=== PATIENT | male | born 1945 | race Caucasian/White ===

== ENCOUNTER → 2022-12-02 | Outpatient (CLI) | payer MEDICARE, SELFPAY ==
[2022-11-28 10:30] LABS: Absolute Lymphocyte Count 1.77 X10^3/uL (0.83-4.51); Basophil# 0.09 X10^3/uL; Basophil% 1.6 % (0-1); Eosinophil# 0.17 X10^3/uL; Hematocrit 47.2 % (40-54); Hemoglobin 16.2 g/dL (13.0-16.5); Lymphocyte # 1.77 X10^3/ul (0.83-4.51); Lymphocyte % 30.8 % (19-41); Mean Corp Hgb Conc 34.3 g/dL (32-36); Mean Corpuscular Hgb 33.1 pg (27.0-32.0); Mean Corpuscular Volume 96.5 fL (80-94); Mean Platelet Vol. 10.5 fl (6.2-12.0); Monocyte% 12.2 % (0-10); NRBC Flagged by Analyzer 0 % (0-5); Neutrophil % 52.2 % (47-70); Platelet Count 163 K/mm3 (150-450); RBC Distribution Width CV 13.5 % (11.6-14.6); RBC Distribution Width SD 47.9 fl (35.1-43.9); Red Blood Count 4.89 M/mm3 (4.6-6.2); White Blood Count 5.7 K/mm3 (4.4-11.0)
[2022-11-28 10:59] LABS: Hemoglobin A1c 5.7 % (3.8-5.6)
[2022-11-28 11:09] LABS: Albumin, Serum 3.9 g/dL (3.2-5.0); Anion Gap 5 (5-15); BUN 14 mg/dL (7-18); BUN/Creat Ratio 17.7 RATIO (10-20); Calcium,Total 8.6 mg/dL (8.5-10.1); Chloride 108 mmol/L (98-107); Creatinine, Serum 0.79 mg/dL (0.70-1.30); EST Glomerular Filtration Rate 101 mL/min (>60); Est Glom Filt Rate - Afr Amer 123 mL/min (>60); Glucose 101 mg/dL (74-106); Potassium 4.2 mmol/L (3.5-5.1); Sodium Level 141 mmol/L (136-145)
[2022-12-04 09:05] LABS: Magnesium 2.2 mg/dL (1.6-2.6); Thyroid Stim Hormone (TSH) 1.93 uIU/mL (0.358-3.74)
--- NOTE | 2022-12-16 08:23 | SUR.PREOP ---
PT HAS A FULL BODY REACTION FROM THE CHLORHEXIDINE SOAP FOR PRE-PROCEDURE REDNESS FROM HEAD TO TOE, PT INSTRUCTED TO TAKE 12.5 MG OF BENADRYL AT HOME PER DR. MARIA. PT CANCELLED FOR TODAY.
== END | disposition home or self-care (01) ==
LOC: PAT 12-31 16:44
PROVIDERS: Anesthesiology; Physician Assistant; PCP Preventive Medicine Occupational Medicine; Referring Provider Orthopaedic Surgery; Visit Provider Orthopaedic Surgery
DX: Z01.810 Encounter for preprocedural cardiovascular examination (principal); Z01.812 Encounter for preprocedural laboratory examination
CPT/HCPCS: 36415; 80048; 82040; 83036; 83735; 84443; 85025; 87077; 87081; 93005; J3475

== ENCOUNTER → 2023-01-17 | Outpatient (CLI) | payer MEDICARE, SELFPAY ==
--- NOTE | 2023-01-17 10:50 | FEM_PTH ---
PATIENT: CURTIS OVALLE LOC: [facility] U#:[id number] AGE/SX: 77/M ROOM: RE01/17/[address]: Dr. Arnulfo Amos DO : 1945 BED: DIS: 01/17/2023 SPEC #: [id number] RECD: 01/17/23 14:58 STATUS: RAUL REQ #: [id number] CHYNA: 01/17/23 10:[address]: Arnulfo Amos DEPT: SURGICAL PATHOLOGY RECD BY: Gayle Malik ENTERED: 01/20/23 07:48 SP TYPE: FEM HEAD OTHR DR: Dr. Jose M Devi, [facility], [place] Tissues: Femoral region, NOS Procedures: Decalcification bone/plaque Surgery Specimen Level IV HEADER OPERATION: Left total hip arthroplasty PRE-OP DIAGNOSIS: Unilateral primary osteoarthritis left hip TISSUE SUBMITTED: Left femur head, bone and soft tissue, left hip MICROSCOPIC DIAGNOSIS Left femoral head, bone and soft tissue, total hip replacement/resection: Femoral head with degenerative osteoarthritic changes. Fragments of dense fibroconnective tissue and fibroadipose tissue. DORIS:pal 01/23/2023 MICROSCOPIC DESCRIPTION Slides are reviewed. GROSS DESCRIPTION Received is one container labeled with the patient's name and designated left femoral head, bone and soft tissue, left hip. The specimen consists of a norton femoral head with portion of femoral neck. The femoral head measures 5.0 x 5.0 x 4.5 cm and the femoral neck measures 1.0 cm in length. The articular surface displays prominent osteophyte formation, eburnation and bone erosion. Also present in the specimen container are multiple irregular fragments of norton, indurated tissue measuring in aggregate 5.5 x 5.5 x 1.0 cm. [employer] sections are submitted in two cassettes as follows: 1 - soft tissue, 2 - bone after decalcification. / DORIS:pal 01/20/2023 TC:5 CPT: 56533, 44810
== END | disposition home or self-care (01) ==
LOC: LABSPEC 15:06
PROVIDERS: PCP Preventive Medicine Occupational Medicine; Referring Provider Orthopaedic Surgery; Visit Provider Orthopaedic Surgery
DX: M16.12 Unilateral primary osteoarthritis, left hip (principal)
CPT/HCPCS: 88305; 88307; 88311